=== PATIENT | female | born 1980 | race African-American/Black ===

== ENCOUNTER 2017-03-27 01:50 | Outpatient (CLI) | payer OTHER | END 2017-03-27 01:51 | disposition home or self-care (01) | LOC: BICRAD 01:50 | PROVIDERS: ATTEND Nurse Practitioner Family | DX: M54.9 Dorsalgia, unspecified (principal); M47.896 Other spondylosis, lumbar region | CPT/HCPCS: 72100 ==

== ENCOUNTER 2017-03-28 09:17 | Outpatient (CLI) | payer OTHER ==
--- NOTE | 2017-03-28 10:27 | CT ---
HEAD CT WITHOUT CONTRAST: Date: 03/28/17 COMPARISON: None. HISTORY: Migraine headaches, frontal headache for 5 days. FINDINGS: Imaged paranasal sinuses and mastoid air cells are well aerated. There is no displaced calvarial frac ture. No intracranial hemorrhage, midline shift, mass effect, or ventricular enlargement. IMPRESSION: No acute findings. POS: [facility]
== END 2017-03-28 09:18 | disposition home or self-care (01) ==
LOC: CT 09:17
PROVIDERS: ATTEND Specialist
DX: G43.909 Migraine, unspecified, not intractable, without status migrainosus (principal)
CPT/HCPCS: 70450

== ENCOUNTER 2018-10-30 13:28 | Outpatient (CLI) | payer OTHER ==
--- NOTE | 2018-10-30 14:22 | MMO ---
Bilateral MAMMO Bilat Screen [facility]. CLINICAL HISTORY: Patient is 38 years old and is seen for screening. The patient has the following family history of breast cancer: maternal aunt, at age 50. VIEWS: The views performed were: bilateral craniocaudal with tomosynthesis and bilateral mediolateral oblique with tomosynthesis. MAMMOGRAM FINDINGS: There are scattered fibroglandular densities. There are no suspicious masses, calcifications or areas of architectural distortion. There are benign appearing calcifications in both breasts. There are no suspicious masses, suspicious calcifications, or new areas of architectural distortion. IMPRESSION: THERE IS NO MAMMOGRAPHIC EVIDENCE OF MALIGNANCY. A ROUTINE FOLLOW-UP MAMMOGRAM IN 1 YEAR IS RECOMMENDED. THE RESULTS OF THIS EXAM WERE SENT TO THE PATIENT. ACR BI-RADS Category 2 - Benign finding MAMMOGRAPHY NOTE: 1. A negative mammogram report should not delay a biopsy if a dominant of clinically suspicious mass is present. 2. Approximately 10% to 15% of breast cancers are not detected by mammography. 3. Adenosis and dense breasts may obscure an underlying neoplasm. Reported by: KELLY GUPTA MD Electonically Signed: [id number]
== END 2018-10-30 13:29 | disposition home or self-care (01) ==
LOC: BICMAMMO 13:28
PROVIDERS: ATTEND Specialist
DX: Z12.31 Encounter for screening mammogram for malignant neoplasm of breast (principal); Z80.3 Family history of malignant neoplasm of breast
CPT/HCPCS: 77063; 77067

== ENCOUNTER 2018-10-31 01:05 | Emergency (ER) | payer OTHER ==
[2018-10-31 01:35] LABS: Bacteria/HPF None Seen HPF (None Seen); Bilirubin Negative (Negative); Blood, Urine 2+ (Negative); Clarity Turbid (Clear); Glucose, Urine (Dipstick) Normal (Negative); Leukocyte Negative Leu/uL (Negative); Nitrite Negative (Negative); Protein, Urine (Dipstick) 20 mg/dL (Neg-Trace); RBC/HPF Greater than 50 HPF (0-3); Urobilinogen Normal mg/dL (Less than 2)
[2018-10-31 01:42] LABS: #Eosinphils 0.3 thou/uL (0.0-0.7); #Lymphocytes 3.7 thou/uL (1.20-3.40); #Monocytes 0.6 thou/uL (0.11-0.59); %Basophils 0.5 % (0.0-1.0); %Eosinophils 3.5 % (0.0-10.0); %Neutrophils 52.1 % (42.0-75.0); Hemoglobin 8.6 g/dL (12.0-16.0); Mean Corpuscular HGB CONC 33.6 g/dL (32.0-36.0); Mean Corpuscular Hemoglobin 20.2 pg (27.0-31.0); Mean Corpuscular Volume 60.1 fL (78.0-98.0); Mean Platelet Volume 5.8 fL (7.4-10.4); Platelet Count 447 thou/uL (130-400); RBC Distribution Width 21.2 % (11.5-14.5); Red Blood Cell (RBC) Count 4.24 mill/uL (4.20-5.40); Reflex for Review?? NO; White Blood Cell (WBC) Count 9.7 thou/uL (4.8-10.8)
[2018-10-31 01:47] LABS: BHCG - Serum Negative (NEGATIVE); Pregs Control Background? CLEAR/WHITE (CLR/WHITE); Pregs Control Bar Appear? YES (CONTROL BAR)
[2018-10-31 01:55] LABS: ALT (SGPT) Less than 7 U/L (8-55); AST (SGOT) 13 U/L (5-34); Albumin 4.2 g/dL (3.5-5.0); Alkaline Phosphatase 64 U/L (40-150); Anion Gap 10 mmol/L (10-20); BUN (Urea Nitrogen) 11 mg/dL (7.0-18.7); Bilirubin, Total 0.3 mg/dL (0.2-1.2); Calc. Creatinine Clearance 0 mL/min (70-130); Calcium 9.3 mg/dL (7.8-10.44); Carbon Dioxide 24 mmol/L (22-29); Chloride 107 mmol/L (98-107); Estimated GFR-MDRD 85; Globulin 3.4 g/dL (2.4-3.5); Glucose 110 mg/dL (70-105); Potassium 3.4 mmol/L (3.5-5.1); Protein, Total 7.6 g/dL (6.0-8.3); Sodium 138 mmol/L (136-145)
[2018-10-31] MEDS ORDERED: Ketorolac Tromethamine 30 MG/ML VIAL ONE (02:13)
[2018-10-31] MEDS ORDERED: Ondansetron ODT 4 MG TAB ONE (02:13)
[2018-10-31] MEDS ORDERED: Acetaminophen/Codeine 30-300mg Tablet ONE (04:08)
--- NOTE | 2018-10-31 07:36 | CT ---
PRELIMINARY REPORT/[facility]/AFTER HOURS PROCEDURE EXAM: CT Abdomen and Pelvis Without Contrast EXAM DATE/TIME: 10/31/2018 1:57 AM CLINICAL HISTORY: 38 years old, female; Abdominal pain; Flank; Prior surgery; Patient HX: Er 3. 38 yo F with no pmh here for acute onset of left side & llq abd pain. Associated urinary frequency but no dysuria. Lmp wa s 1 week ago. Surgical HX of x 2; Hernia repair (umbilical). TECHNIQUE: Imaging protocol: Axial computed tomography images of the abdomen and pelvis without contrast. COMPARISON: No relevant prior studies available. FINDINGS: Liver: Normal. Gallbladder and bile ducts: Cholelithiasis, without CT evidence of acute cholecystitis. Pancreas: Normal. Spleen: Normal. Adrenals: Normal. Kidneys and ureters: Bilateral nonobstructive nephrolithiasis. Stomach and bowel: Normal. Appendix: Appendix normal. Intraperitoneal space: Normal. No free air. No significant fluid collection. Vasculature: Normal. No abdominal aortic aneurysm. Lymph nodes: Normal. No enlarged lymph nodes. Bladder: Unremarkable as visualized. Reproductive: Unremarkable as visualized. Bones/joints: No acute abnormality. Soft tissues: Small fat-containing umbilical hernia. Changes of prior ventral hernia repair, without acute complications. IMPRESSION: No acute abdominal or pelvic abnormality. Thank you for allowing us to participate in the care of your patient. Dictated and Authenticated by: Darvin Woods MD 10/31/2018 3:04 AM Central Time ([place] & [place]) FINAL REPORT CT ABDOMEN AND PELVIS WITHOUT CONTRAST HISTORY: Acute onset of left-sided abdominal pain and left lower quadrant abdominal pain. Associated urinary f requency. COMPARISON: None IMPRESSION: 1. Multiple nonobstructing bilateral renal calculi measuring 2 to 3 mm. No ureteral calculus is seen, and there is no hydronephrosis. 2. Cholelithiasis. 3. No CT evidence of appendicitis. 4. Metallic densities anterior abdomen at the level of the umbilicus likely related to prior hernia r epair. However, there does appear to be a tiny fat-containing umbilical hernia. Findings are in agreement with the preliminary report by [facility]. CODE QA Transcribed Date/Time: 10/31/2018 7:52 AM
== END 2018-10-31 04:17 | disposition home or self-care (01) ==
LOC: ERS 01:05
DX: N20.0 Calculus of kidney (principal); I10 Essential (primary) hypertension; D64.9 Anemia, unspecified; F41.9 Anxiety disorder, unspecified; Z79.899 Other long term (current) drug therapy
CPT/HCPCS: 74176; 80053; 81003; 81015; 84703; 85025; 96374; J1885; Q0162

== ENCOUNTER 2019-03-11 08:03 | Day surgery (SDC) | payer OTHER ==
[2019-03-08 12:54] VITALS: BMI 34.3
[2019-03-11] MEDS ORDERED: PROPOFOL 200 MG/20 ML VIAL ONE (13:20)
--- NOTE | 2019-03-11 16:27 | OP ---
DATE OF PROCEDURE: 03/11/2019 PROCEDURES PERFORMED: 1. Esophagogastroduodenoscopy. 2. Colonoscopy. PREOPERATIVE DIAGNOSIS: History of a large serrated adenoma, removed in 2016, due for surveillance and also iron-deficiency anemia. DESCRIPTION OF PROCEDURE: Informed consent was obtained from the patient. She was sedated with total intravenous anesthesia. The bite block was placed and the endoscope was advanced easily to the second portion of the duodenum and retroflexion was performed in the stomach. The esophagus was normal. The GE junction was normal. The stomach was normal including retroflexed views. The first and second portions of the duodenum were normal. The patient was turned around. Rectal exam was performed and was normal. The colonoscope was advanced to the terminal ileum without difficulty. The mucosa of the terminal ileum was normal. The ileocecal valve and appendiceal orifice were clearly identified. The preparation quality was excellent. The colonic mucosa was normal throughout. Retroflexed views in the rectum were normal. IMPRESSION: 1. Normal esophagogastroduodenoscopy and colonoscopy to the terminal ileum. 2. Iron-deficiency anemia, likely secondary to menstrual blood loss. She [facility]. 3. She most likely has obstructive sleep apnea given that she obstructs and desaturates with sedation. If she has not had a formal sleep study, then recommendation is for pulmonology evaluation and sleep study. RECOMMENDATIONS: 1. Repeat colonoscopy in 5 years for surveillance. 2. Referral to Pulmonology to evaluate for obstructive sleep apnea. Job ID: [id number]
== END 2019-03-11 12:03 | disposition home or self-care (01) ==
LOC: SDC 08:03
PROVIDERS: ATTEND Internal Medicine Gastroenterology
PROC: 0DJD8ZZ Inspection of Lower Intestinal Tract, Via Natural or Artificial Opening Endoscopic (ICD-10-PCS; principal; 2019-03-11)
PROC: 0DJ08ZZ Inspection of Upper Intestinal Tract, Via Natural or Artificial Opening Endoscopic (ICD-10-PCS; principal; 2019-03-11)
DX: Z12.11 Encounter for screening for malignant neoplasm of colon (principal); D50.9 Iron deficiency anemia, unspecified; K21.9 Gastro-esophageal reflux disease without esophagitis; F41.9 Anxiety disorder, unspecified; Z79.899 Other long term (current) drug therapy; Z86.010 Personal history of colon polyps
CPT/HCPCS: J2704

== ENCOUNTER 2019-12-11 15:37 | Emergency (ER) | payer OTHER ==
[2019-12-11] MEDS ORDERED: Ketorolac Tromethamine 30 MG/ML VIAL ONE (16:24)
[2019-12-11] MEDS ORDERED: Diazepam 5 MG TAB ONE (16:24)
== END 2019-12-11 16:48 | disposition home or self-care (01) ==
LOC: ERS 15:37
DX: S29.012A Strain of muscle and tendon of back wall of thorax, initial encounter (principal); I10 Essential (primary) hypertension; D64.9 Anemia, unspecified; F41.9 Anxiety disorder, unspecified; Z79.899 Other long term (current) drug therapy; X58.XXXA Exposure to other specified factors, initial encounter
CPT/HCPCS: 96372; 99283; J1885

== ENCOUNTER 2020-03-27 09:49 | Outpatient (CLI) | payer OTHER ==
--- NOTE | 2020-03-27 10:35 | MMO ---
Bilateral MAMMO Bilat Screen [facility]. CLINICAL HISTORY: Patient is 39 years old and is seen for screening. The patient has the following family history of breast cancer: maternal aunt, at age 50. The patient has no personal history of cancer. VIEWS: The views performed were: bilateral craniocaudal with tomosynthesis and bilateral mediolateral oblique with tomosynthesis. FILMS COMPARED: The present examination has been compared to a prior imaging study performed at [facility] on 10/30/2018. This study has been interpreted with the assistance of computer-aided detection. MAMMOGRAM FINDINGS: The breasts are almost entirely fat. There are stable benign appearing calcifications seen in both breasts. There are no suspicious masses, suspicious calcifications, or new areas of architectural distortion. IMPRESSION: THERE IS NO MAMMOGRAPHIC EVIDENCE OF MALIGNANCY. A ROUTINE FOLLOW-UP MAMMOGRAM IN 1 YEAR IS RECOMMENDED. THE RESULTS OF THIS EXAM WERE SENT TO THE PATIENT. ACR BI-RADS Category 2 - Benign finding MAMMOGRAPHY NOTE: 1. A negative mammogram report should not delay a biopsy if a dominant of clinically suspicious mass is present. 2. Approximately 10% to 15% of breast cancers are not detected by mammography. 3. Adenosis and dense breasts may obscure an underlying neoplasm. Reported by: EMPERATRIZ ANGEL MD Electonically Signed: [id number]
== END 2020-03-27 09:50 | disposition home or self-care (01) ==
LOC: BICMAMMO 09:49
PROVIDERS: ATTEND Specialist
DX: Z12.31 Encounter for screening mammogram for malignant neoplasm of breast (principal); Z80.3 Family history of malignant neoplasm of breast
CPT/HCPCS: 77063; 77067

== ENCOUNTER 2020-07-27 08:29 | Outpatient (CLI) | payer OTHER | END 2020-07-27 08:30 | disposition home or self-care (01) | LOC: BICMRI 08:29 | PROVIDERS: ATTEND Orthopaedic Surgery Hand Surgery | DX: M77.8 Other enthesopathies, not elsewhere classified (principal) ==

== ENCOUNTER 2022-12-23 06:39 | Day surgery (SDC) | payer BC ==
[2022-12-22 12:53] VITALS: BMI 37.0
[2022-12-23] MEDS ORDERED: Midazolam HCl 2 mg/2 ml Vial ONE (08:59)
[2022-12-23] MEDS ORDERED: Ketamine 50 MG/ML (10ML VIAL) ONE (09:02)
[2022-12-23] MEDS ORDERED: PROPOFOL 200 MG/20 ML VIAL ONE (09:49)
== END 2022-12-23 11:32 | disposition home or self-care (01) ==
LOC: SDC 06:39
PROVIDERS: ATTEND Internal Medicine Gastroenterology
DX: D72.820 Lymphocytosis (symptomatic) (principal); D50.9 Iron deficiency anemia, unspecified; F41.9 Anxiety disorder, unspecified; Z86.010 Personal history of colon polyps; Z79.899 Other long term (current) drug therapy
CPT/HCPCS: 88305; J2250; J2704

== ENCOUNTER 2024-03-05 09:26 | Outpatient (CLI) | payer BC ==
[2024-03-05] MEDS ORDERED: Iopamidol 370 76% 100 ML VIAL ONE (13:48)
== END 2024-03-05 09:27 | disposition home or self-care (01) ==
LOC: BICCT 09:26
PROVIDERS: ATTEND Specialist
DX: D37.032 Neoplasm of uncertain behavior of the submandibular salivary glands (principal)
CPT/HCPCS: 70492